=== PATIENT | male | born 1985 | race Hispanic/Latino ===

== ENCOUNTER 2020-01-30 10:36 | Emergency (ER) | payer MEDICAID, OTHER ==
[2020-01-30 10:48] VITALS: BP 122/78
[2020-01-30] MEDS ORDERED: ACETAMINOPHEN 500 MG TAB PO ONE ×2 (11:50)
--- NOTE | 2020-01-30 12:23 | XRay Report ---
CHEST 2 VIEWS INDICATION / CLINICAL INFORMATION: subjective fever, mild cough, possible covid exposure. COMPARISON: None available. FINDINGS: SUPPORT DEVICES: None. HEART / MEDIASTINUM: No significant abnormality. LUNGS / PLEURA: No significant pulmonary or pleural abnormality. No pneumothorax. ADDITIONAL FINDINGS: No significant additional findings. IMPRESSION: 1. No acute findings. Signer Name: Jewel Jha MD Signed: 01/30/2020 12:19 PM Workstation Name: [id number]
--- NOTE | 2020-01-30 12:50 | Emergency Department Report ---
ED Fever HPI - General Chief Complaint: Fever Stated Complaint: FEVER Time Seen by Provider: 01/30/20 11:30 Source: patient Exam Limitations: no limitations - History of Present Illness Initial Comments: 34-year-old male smoker with no past medical history presents to the hospital concerned about coronavirus exposure. For the last 3 days he has had a mild cough however he has a chronic cough secondary to smoking. He has had subjective fever, chills, and sweats. His best friend's tested positive for coronavirus. Patient has only been around his best friend (not the ) and the best friend does not have symptoms. Patient did not receive a flu shot. Patient denies shortness of breath, nausea, vomiting, sore throat, or diarrhea ED Review of Systems ROS: Stated complaint: FEVER Other details as noted in HPI ED Past Medical Hx - Past Medical History Previous Medical History?: Yes Additional medical history: Back injury. - Surgical History Past Surgical History?: No - Social History Smoking Status: Current Every Day Smoker - Medications Home Medications: Home Medications Medication Instructions Recorded Confirmed Last Taken Type Cyclobenzaprine HCl [FLEXERIL] 10 mg PO QDAY #15 tablet 09/02/13 Unknown Rx oxyCODONE /ACETAMINOPHEN [Percocet 1 tab PO Q6HR PRN #15 tablet 09/02/13 U nknown Rx 5/325 mg] ED Physical Exam - General Limitations: No Limitations - Other Other exam information: General: No acute distress Head: Atraumatic Eyes: normal appearance ENT: Moist mucous membranes Neck: Normal appearance, no midline tenderness Chest: Clear to auscultation bilaterally CV: Regular rate and rhythm Abdomen: Soft, normal bowel sounds, nontender, nondistended, no rebound or guarding Back: Normal inspection Extremity: Normal inspection, full range of motion Neuro: Alert O x 3, no facial asymmetry, speech clear, no gross motor sensory deficit Psych: Appropriate behavior Skin: No rash ED Course Vital Signs 01/30/20 01/30/20 10:40 10:46 Temperature 97.4 F L 97.4 F L Pulse Rate 100 H Respiratory 18 Rate Blood Pressure 122/78 O2 Sat by Pulse 100 Oximetry - Reevaluation(s) Reevaluation #1: 01/30/20 12:48 Per nurse patient was inquiring about going to the cafeteria to eat. He was informed that [facility] not serve [facility]. He then eloped from the department. ED Medical Decision Making - Lab Data Lab Results 01/30/20 Range/Units 12:30 Influenza A (Rapid) Negative (Negative) Influenza B (Rapid) Negative (Negative) - Radiology Data Radiology results: report reviewed (cxr: naf) - Medical Decision Making Patient informed prior to testing results that we do not perform COVID testing in low risk individuals without signs and symptoms requiring admission to the hospital. He was informed of outpatient testing availability via [facility]. Chest x- ray reviewed without signs of infiltrate. No signs of hypoxia or fever in the ED. Rectal temperature declined. Flu swab collected with results pending at time of elopement - Differential Diagnosis Viral syndrome, pneumonia, bronchitis, allergic rhinitis, COVID Critical Care Time: No Critical care attestation.: If time is entered above; I have spent that time in minutes in the direct care of this critically ill patient, excluding procedure time. ED Disposition Clinical Impression: Viral illness Disposition: ELOPED Is pt being admited?: No Condition: Stable Time of Disposition: 12:47
== END 2020-01-30 12:50 | disposition left against medical advice (07) ==
LOC: ED 10:36
DX: B34.9 Viral infection, unspecified (principal); F17.200 Nicotine dependence, unspecified, uncomplicated; Z79.899 Other long term (current) drug therapy
CPT/HCPCS: 71046; 87400